=== PATIENT | female | born 1965 | race Caucasian/White ===

== ENCOUNTER 2023-07-27 16:43 | Emergency (ER) | payer OTHER ==
[2023-07-27 16:53] VITALS: BP 128/61; PULSE 90; RESP 18; TEMP 98.3; BMI 24.0
[2023-07-27] MEDS ORDERED: KETOROLAC TROMETHAMINE 30 MG/1 ML VIAL IM ONE (17:37)
[2023-07-27] MEDS ORDERED: KETOROLAC TROMETHAMINE 30 MG/1 ML VIAL ONE (17:47)
== END 2023-07-27 18:24 | disposition home or self-care (01) ==
LOC: JERFT 16:43
PROC: 3E0233Z Introduction of Anti-inflammatory into Muscle, Percutaneous Approach (ICD-10-PCS; principal; 2023-07-27)
DX: M79.644 Pain in right finger(s) (principal); S60.111A Contusion of right thumb with damage to nail, initial encounter; W23.1XXA Caught, crushed, jammed, or pinched between stationary objects, initial encounter
CPT/HCPCS: 73130-TC-RT-FY; 99284-25